=== PATIENT | female | born 1975 | race Two or more races ===

== ENCOUNTER 2019-03-13 18:07 | Emergency (ER) | payer OTHER ==
[~2019-03-13] VITALS: Ht 160 cm; Wt 106.6 kg
--- NOTE | 2019-03-13 18:10 | NUR ---
ED Nurse Note: Patient arrived to ED from home complaining of new onset left arm numbness that started 2 hours ago. Numbness started in the fingers and slowly has worked its way up to her shoulder, now her entire left arm and tongue are numb. Patient denies any recent falls, sleeping on the arm, taking any medications, or eating any new or different foods. Patient AxO x 4, no s/s of acute distress. Patient on the diagnostic cardiac sonographer, bed in lowest position. Patient's cousin at bedside
[2019-03-13 18:28] VITALS: BP 147/87
--- NOTE | 2019-03-13 19:10 | NUR ---
HAND-OFF: Report given to Lindy PHILLIPS.
[2019-03-13 19:14] LABS: BASOPHILS % (AUTO) 1.6 % (0.0-2.0); HEMATOCRIT 43.7 % (37.0-47.0); LYMPHOCYTES % (AUTO) 39.7 % (20.0-45.0); MEAN CORPUSCULAR VOLUME 87 FL (80-99); MONOCYTES % (AUTO) 6.2 % (1.0-10.0); NEUTROPHILS % (AUTO) 51.6 % (45.0-75.0); PLATELET COUNT 275 K/UL (150-450); RED BLOOD COUNT 5.02 M/UL (4.20-5.40); WHITE BLOOD COUNT 5.9 K/UL (4.8-10.8)
--- NOTE | 2019-03-13 19:30 | NUR ---
ED Nurse Note: Recieved report from am nurse to resume care, pt in bed awake and alert, on cardiac monitoring, has patent saline lock, is conversing with family at bedsdie, pt waiting for results and dispo information, will continue to closely monitor.
[2019-03-13 19:38] LABS: ANION GAP 10 mmol/L (5-15); BLOOD UREA NITROGEN 14 mg/dL (7-18); CARBON DIOXIDE 26 MMOL/L (21-32); CHLORIDE 106 MMOL/L (98-107); CREATININE 1.1 MG/DL (0.55-1.30); POTASSIUM 3.8 MMOL/L (3.5-5.1); SODIUM 142 MMOL/L (136-145)
--- NOTE | 2019-03-13 19:43 | Diagnostic Imaging Report ---
EXAM: XR Chest, 1 View CLINICAL HISTORY: CP TECHNIQUE: Frontal view of the chest. COMPARISON: No relevant prior studies available. FINDINGS: Lungs: Unremarkable. No consolidation. Pleural space: Unremarkable. No pneumothorax. Heart: Unremarkable. No cardiomegaly. Mediastinum: Unremarkable. Bones/joints: Unremarkable. IMPRESSION: Normal chest x-ray.
--- NOTE | 2019-03-13 19:43 | Diagnostic Imaging Report ---
EXAM: CT Head Without Intravenous Contrast CLINICAL HISTORY: PAIN TECHNIQUE: Axial computed tomography images of the head/brain without intravenous contrast. CTDI is 60 mGy and DLP is 1304.2 mGy-cm. One or more of the following dose reduction techniques were used: automated exposure control, adjustment of the mA and/or kV according to patient size, use of iterative reconstruction technique. COMPARISON: No relevant prior studies available. FINDINGS: Brain: Unremarkable. No hemorrhage. No significant white matter disease. No edema. Ventricles: Unremarkable. No ventriculomegaly. Bones/joints: Unremarkable. No acute fracture. Soft tissues: Unremarkable. Sinuses: Unremarkable as visualized. No acute sinusitis. Mastoid air cells: Unremarkable as visualized. No mastoid effusion. IMPRESSION: Normal head/brain CT.
[2019-03-13 19:49] LABS: ALANINE AMINOTRANSFERASE 39 U/L (12-78); ALBUMIN 3.9 G/DL (3.4-5.0); ALBUMIN/GLOBULIN RATIO 0.9 (1.0-2.7); ALKALINE PHOSPHATASE 124 U/L (46-116); ASPARTATE AMINO TRANSFERASE 20 U/L (15-37); BILIRUBIN,TOTAL 0.2 MG/DL (0.2-1.0)
[2019-03-13] MEDS ORDERED: ASPIRIN81 M3 PO (20:30)
--- NOTE | 2019-03-13 20:30 | NUR ---
ER DISCHARGE NOTE: Patient is cleared to be discharged per ERMD, pt is aox4, on room air, with stable vital signs. pt was given dc and prescription instructions, pt was able to verbalize understanding, pt id band and iv site removed without complications. pt is able to ambulate with steady gait. pt took all belongings.
[2019-03-13 20:35] VITALS: BP 147/87
--- NOTE | 2019-03-13 23:36 | Emergency Room Report ---
History of Present Illness General Chief Complaint: General Complaint Source: Patient, EMS Present Illness HPI Patient 44-year-old female presents after increased Left arm numbness. Patient had recently had been having difficulty sleeping. She denies any weakness. Denies any lower extremity weakness. No prior cardiac history. She had not been vomiting. Denies any diarrhea.Reports having moderate headache. No difficulty with speech. She not been having any weakness. No fever.Denies any oral contraceptive use. No recent leg pain or swelling. Allergies: Coded Allergies: PENICILLINS (Verified Allergy, Unknown, 03/13/19) Patient History Past Medical History: see triage record Last Menstrual Period: 02/23/19 Now: No Reviewed Nursing Documentation: PMH: Agreed; PSxH: Agreed Nursing Documentation-PMH Past Medical History: No Stated History Review of Systems All Other Systems: negative except mentioned in HPI Physical Exam Vital Signs Date Time Temp Pulse Resp B/P (MAP) Pulse Ox O2 Delivery O2 Flow Rate FiO2 03/13/19 18:00 98.2 80 18 136/88 (104) 99 Room Air Sp02 EP Interpretation: reviewed, normal General Appearance: normal inspection, well appearing, no apparent distress, alert Head: atraumatic ENT: normal ENT inspection, hearing grossly normal, normal voice Neck: normal inspection, full range of motion, supple, no bony tend Respiratory: normal inspection, lungs clear, normal breath sounds, no respiratory distress, no retraction, no wheezing Cardiovascular #1: regular rate, rhythm, no edema Gastrointestinal: normal inspection, normal bowel sounds, non tender, soft, no guarding, no hernia Genitourinary: no CVA tenderness Musculoskeletal: normal inspection, back normal, normal range of motion Neurologic: alert, motor strength/tone normal, drupal architect III-XII nml as tested, oriented x3, cerebellar normal, responsive, speech normal, normal gait, normal inspection Psychiatric: normal inspection, judgement/insight normal, mood/affect normal Medical Decision Making Diagnostic Impression: Primary Impression: Paresthesias ER Course Patient presented for left arm numbness. Differential diagnosis includes not limited to vascular occlusion, myocardial infarction, multiple sclerosis among others. Because of complexity of patient's case laboratory tests and imaging studies were ordered. Patient's CT of the head read by radiology showed no evidence of acute intracranial hemorrhage or CVA. Laboratory testing was unremarkable. Patient was noted to have recent increased stress at home and this may be stress related as she has been having difficulty with sleeping. Patient does not appear to have any evidence of acute CVA with any motor deficit. Patient appears to be stable for outpatient follow-up. She advised to follow-up with her primary care physician for further outpatient cardiac work -up. She is advised to return if she had worsening of condition or other concerns. Labs Test 03/13/19 18:35 White Blood Count 5.9 K/UL (4.8-10.8) Red Blood Count 5.02 M/UL (4.20-5.40) Hemoglobin 14.0 G/DL (12.0-16.0) Hematocrit 43.7 % (37.0-47.0) Mean Corpuscular Volume 87 FL (80-99) Mean Corpuscular Hemoglobin 27.8 PG (27.0-31.0) Mean Corpuscular Hemoglobin Concent 32.0 G/DL (32.0-36.0) Red Cell Distribution Width 11.0 % (11.6-14.8) Platelet Count 275 K/UL (150-450) Mean Platelet Volume 6.4 FL (6.5-10.1) Neutrophils (%) (Auto) 51.6 % (45.0-75.0) Lymphocytes (%) (Auto) 39.7 % (20.0-45.0) Monocytes (%) (Auto) 6.2 % (1.0-10.0) Eosinophils (%) (Auto) 1.0 % (0.0-3.0) Basophils (%) (Auto) 1.6 % (0.0-2.0) D-Dimer 0.34 mg/L FEU (0.00-0.49) Sodium Level 142 MMOL/L (136-145) Potassium Level 3.8 MMOL/L (3.5-5.1) Chloride Level 106 MMOL/L (98-107) Carbon Dioxide Level 26 MMOL/L (21-32) Anion Gap 10 mmol/L (5-15) Blood Urea Nitrogen 14 mg/dL (7-18) Creatinine 1.1 MG/DL (0.55-1.30) Estimat Glomerular Filtration Rate 54.2 mL/min (>60) Glucose Level 159 MG/DL (74-106) Calcium Level 9.0 MG/DL (8.5-10.1) Total Bilirubin 0.2 MG/DL (0.2-1.0) Aspartate Amino Transf (AST/SGOT) 20 U/L (15-37) Alanine Aminotransferase (ALT/SGPT) 39 U/L (12-78) Alkaline Phosphatase 124 U/L (46-116) Troponin I 0.000 ng/mL (0.000-0.056) Pro-B-Type Natriuretic Peptide 67 pg/mL (0-125) Total Protein 8.3 G/DL (6.4-8.2) Albumin 3.9 G/DL (3.4-5.0) Globulin 4.4 g/dL Albumin/Globulin Ratio 0.9 (1.0-2.7) Lipase 99 U/L (73-393) EKG Diagnostic Results Rate: normal Rhythm: NSR ST Segments: no acute changes Last Vital Signs Date Time Temp Pulse Resp B/P (MAP) Pulse Ox O2 Delivery O2 Flow Rate FiO2 03/13/19 18:28 96 16 147/87 99 Room Air 03/13/19 18:00 98.2 Status: improved Disposition: HOME, SELF-CARE Condition: Stable Scripts Aspirin (Aspirin) 81 Mg Tab.chew 81 MG PO DAILY, #30 TAB Prov: Diaz Odom MD 03/13/19 Referrals: NOT CHOSEN IPA/,REFERRING (PCP) Patient Instructions: Diaz Herndon MD Mar 13, 2019 23:36
== END 2019-03-13 20:35 | disposition home or self-care (01) ==
LOC: EDBD 18:07 → EMR 18:15
DX: R20.2 Paresthesia of skin (principal); Z88.0 Allergy status to penicillin
CPT/HCPCS: 36415; 70450; 71045; 80053; 83690; 83880; 84484; 85025; 85379; 93005; 99284